=== PATIENT | male | born 1985 | race Asian ===

== ENCOUNTER 2018-08-24 14:50 | Outpatient (CLI) | payer OTHER ==
--- NOTE | 2018-08-25 15:36 | MRI Report ---
Reason: PAIN IN UNSPECIFIED KNEE Procedure Date: 08/24/2018 Accession Number: [id number] / [id number] Procedure: MRI - Knee RT W/O CPT Code: FULL RESULT: EXAM: RIGHT KNEE MRI WITHOUT CONTRAST EXAM DATE: 08/24/2018 03:37 PM. CLINICAL HISTORY: Knee pain. COMPARISON: None. TECHNIQUE: Multiplanar, multisequence T1-weighted and fluid-sensitive sequences of the knee without contrast. Other: None. FINDINGS: Bones: No fractures. No marrow edema. Articular Cartilage: Unremarkable. Medial Meniscus: The medial meniscus is intact. Lateral Meniscus: The lateral meniscus is intact. Cruciate Ligaments: The anterior and posterior cruciate ligaments are intact. Collateral Ligaments: The medial collateral and lateral collateral ligamentous structures are intact. Tendons: The quadriceps, patellar, semimembranosus, and popliteus tendons are unremarkable. Musculature: No edema or fatty atrophy. Other: No effusion. No popliteal cyst. No loose bodies. The medial and lateral retinacula are intact. Prepatellar subcutaneous edema is present. IMPRESSION: No internal derangement of the knee by MRI. [facility] MUSCULOSKELETAL RADIOLOGY SECTION
== END 2018-08-24 14:51 | disposition home or self-care (01) ==
LOC: DI 14:50
PROVIDERS: ATTEND Family Medicine
DX: M25.561 Pain in right knee (principal)